=== PATIENT | female | born 1960 | race Caucasian/White ===

== ENCOUNTER 2017-12-11 14:55 | Outpatient (REF) | payer MEDICAID, SELFPAY ==
[2017-12-11 22:34] LABS: ALT 32 U/L (12-78); AST 26 U/L (15-37); Albumin 3.8 g/dL (3.4-5.0); Alkaline Phosphatase 64 U/L (46-116); Amylase 96 U/L (25-115); Anion Gap 8.2 mmol/L (3-11); BUN 14 mg/dL (7-18); Bilirubin, Total 1.3 mg/dL (0.2-1.0); CO2 30.8 mmol/L (21.0-32.0); CREATININE 0.74 mg/dL (0.55-1.02); Calcium 9.1 mg/dL (8.5-10.1); Chloride 101 mmol/L (98-107); Glucose 84 mg/dL (70-100); Lipase 209 U/L (73-393); Potassium 3.6 mmol/L (3.5-5.1); Sodium 140 mmol/L (136-145); TSH (W/Ref FT4) 0.97 uIU/mL (0.358-3.74); Total Protein 7.3 g/dL (6.4-8.2)
== END 2017-12-11 15:15 ==
LOC: NCHCN 14:55
PROVIDERS: Visit Provider Nurse Practitioner
DX: R10.11 Right upper quadrant pain (principal); E03.9 Hypothyroidism, unspecified
CPT/HCPCS: 80053; 83690; 82150; 84443

== ENCOUNTER 2017-12-16 01:04 | Outpatient (CLI) | payer MEDICAID, SELFPAY ==
--- NOTE | 2017-12-16 08:24 | DI.US_ITS ---
SYMPTOM/DIAGNOSIS: RUQ PAIN, R10.11 ABDOMEN ULTRASOUND: Routine examination. Comparison is made with exam of 05/20/15. Comparison CT scan is 08/22/16. The aorta is unremarkable. The IVC appears mildly dilated superiorly. The liver is normal in size. No hepatic mass is seen. The gallbladder, common duct, pancreas and spleen are unremarkable as are the kidneys. There does appear to be a small pericardial effusion present. IMPRESSION: 1. Negative abdominal ultrasound. 2. Findings suggestive of a small pericardial effusion. Echocardiography should be considered for further evaluation.
--- NOTE | 2017-12-16 09:15 | DI.MAMMO_ITS ---
SYMPTOM/DIAGNOSIS: SCREENING, Z12.31 MAMMOGRAMS: Mammograms were interpreted according to the usual protocol including computer analysis with CAD system, tomosynthesis and C view imaging. Comparison with prior examinations. Breast C. No masses or microcalcifications are seen. There is nothing to suggest malignancy. IMPRESSION: Negative mammogram. Routine screening is recommended. Category I. MQSA ASSESSMENT OF FINDINGS: Negative. Category 1. Patient will receive a letter notifying them of these results. Bi-RADS category C. The breasts are heterogeneously dense, which may obscure small masses.
== END 2017-12-16 01:24 ==
PROVIDERS: Visit Provider Nurse Practitioner
DX: R10.11 Right upper quadrant pain (principal); I31.3 Pericardial effusion (noninflammatory); Z12.31 Encounter for screening mammogram for malignant neoplasm of breast
CPT/HCPCS: 77063; 77067; 76700

== ENCOUNTER 2017-12-20 12:15 | Outpatient (REF) | payer MEDICAID, SELFPAY ==
[2017-12-20 21:24] LABS: Absolute Basophil Count 0.06 k/cumm (0.0-0.2); Absolute Eosinophil Count 0.05 k/cumm (0.0-0.7); Absolute Lymphocyte Count 1.67 k/cumm (1.2-3.4); Absolute Neutrophil Count 1.96 k/cumm (1.2-6.7); Basophils % 1.4; Eosinophils % 1.2; HCT 38.9 % (36.0-46.0); HGB 13.3 g/dL (12.0-15.5); Lymphocytes % 40.3; Mean Corp. HGB Concentration 34.2 g/dL (32.0-36.0); Mean Corpuscular Hemoglobin 30.4 pg (27.0-33.0); Mean Platelet Volume 10.9 fL (8.0-11.0); Monocytes % 9.7; Neutrophils % 47.4; Platelet Count 228 x1000/uL (130-400); RBC 4.37 m/cumm (4.00-5.20); RBC Distribution Width 12.9 % (11.7-14.6); White Blood Cell Count 4.14 k/cumm (4.4-10.8)
== END 2017-12-20 12:35 ==
LOC: NCHCN 12:15
PROVIDERS: Visit Provider Internal Medicine
DX: R05 Cough (principal)
CPT/HCPCS: 85025

== ENCOUNTER 2018-01-17 00:20 | Outpatient (CLI) | payer MEDICAID, SELFPAY ==
--- NOTE | 2018-01-17 12:25 | MERGE_ITS ---
*[facility]* *[facility]* [address] [place] [address] Date of study: 01/17/2018 Transthoracic Echocardiography M-mode, complete 2D, complete spectral Doppler, and color Doppler *STUDY CONCLUSIONS* Summary: 1. Left ventricle: The cavity size was normal. Wall thickness was normal. Systolic function was normal. The estimated ejection fraction was 55-60%. Wall motion was normal; there were no regional wall motion abnormalities. 2. Right ventricle: The cavity size was normal. Systolic function was normal. 3. Tricuspid valve: There was mild-moderate regurgitation. 4. Inferior vena cava: The vessel was patent and normal in size. The respirophasic diameter changes were in the normal range (greater than or equal to 50%), consistent with normal central venous pressure. 5. Pericardium, extracardiac: A small, free-flowing pericardial effusion was identified along the right ventricular free wall and along the right atrial free wall. There was no evidence of hemodynamic compromise. *PATIENT PRESENTATION* Height: 175.3cm ((69in) ) S/D Pressure: 90 / 61 Weight: 53.5kg ((117.8lb) ) BSA: 1.6m^2 Test start time: 10:30 AM. Test stop time: 12:15 PM. PERFORMING Unknown PERFORMING [facility] [employer] RT Hunter ([place])([place]), [facility] ORDERING Erna Dumont REFERRING Erna Dumont *PROCEDURE DATA* Procedure information: The patient was identified by two identifiers. This study was interpreted by [facility]. Pertinent images and digital data are archived for permanent storage and are available for subsequent review. No prior study was available for comparison. Study status: Routine. Transthoracic echocardiography. M-mode, complete 2D, complete spectral Doppler, and color Doppler. A Transthoracic Echocardiogram was performed. Scanning was performed from the parasternal, apical, subcostal, and suprasternal notch acoustic windows. Images were obtained using an [id number] cardiac ultrasound machine. Image quality was adequate. Study completion: The patient tolerated the procedure well. There were no complications. History: PMH: Possible pericardial effusion noted on abd. US. asymptomatic. *CARDIAC ANATOMY* Left ventricle: The cavity size was normal. Wall thickness was normal. Systolic function was normal. The estimated ejection fraction was 55-60%. Wall motion was normal; there were no regional wall motion abnormalities. Aortic valve: Trileaflet; mildly thickened, mildly calcified leaflets. Mobility was not restricted. Doppler: Transvalvular velocity was within the normal range. There was no stenosis. There was no significant regurgitation. VTI ratio of LVOT to aortic valve: 0.84. Valve area (VTI): 2.3cm^2. Indexed valve area (VTI): 1.4cm^2/m^2. Peak velocity ratio of LVOT to aortic valve: 0.88. Valve area (Vmax): 2.4cm^2. Indexed valve area (Vmax): 1.5cm^2/m^2. Mean velocity ratio of LVOT to aortic valve: 0.72. Valve area (Vmean): 2cm^2. Indexed valve area (Vmean): 1.2cm^2/m^2. Mean gradient (S): 3.2mm Hg. Peak gradient (S): 5.9mm Hg. Aorta: Aortic root: The aortic root was normal in size. Ascending aorta: The ascending aorta was normal in size. Mitral valve: Mildly thickened leaflets. Mobility was not restricted. Doppler: Transvalvular velocity was within the normal range. There was no evidence for stenosis. There was trivial regurgitation. Valve area by pressure half-time: 3.2cm^2. Indexed valve area by pressure half-time: 2cm^2/m^2. Left atrium: The atrium was normal in size. Right ventricle: The cavity size was normal. Systolic function was normal. Pulmonic valve: The pulmonary valve appears to be grossly normal. Doppler: Transvalvular velocity was within the normal range. There was no evidence for stenosis. There was no significant regurgitation. Tricuspid valve: Structurally normal valve. Doppler: Transvalvular velocity was within the normal range. There was no evidence for stenosis. There was mild-moderate regurgitation. Pulmonary artery: The main pulmonary artery was normal-sized. Pulmonary systolic pressure was within the normal range, in the range of 25mm Hg to 30mm Hg. Right atrium: The atrium was normal in size. Pericardium: A small, free-flowing pericardial effusion was identified along the right ventricular free wall and along the right atrial free wall. There was no evidence of hemodynamic compromise. Systemic veins: Inferior vena cava: Well visualized. The vessel was patent and normal in size. The respirophasic diameter changes were in the normal range (greater than or equal to 50%), consistent with normal central venous pressure. Baseline ECG: Sinus bradycardia. Measurements Left ventricle Value Reference LV ID, ED, PLAX 4.0 cm 3.5 - 6.0 LV ID, ES, PLAX 3.0 cm 2.1 - 4.0 LV PW thickness, ED, PLAX 1.0 cm LV end-diastolic volume, 1-p A2C 84 ml LV ejection fraction, 1-p A2C 55 % LV end-diastolic volume, 1-p A4C 72 ml LV ejection fraction, 1-p A4C 53 % LV e', lateral 0.12 m/sec LV E/e', lateral 5 LV e', medial 0.1 m/sec LV E/e', medial 6 LV e', average 0.11 m/sec LV E/e', average 6 Ventricular septum Value Reference IVS thickness, ED, PLAX 0.7 cm LVOT Value Reference LVOT ID, A-P 1.9 cm LVOT area 2.7 cm^2 LVOT peak velocity, S 1.07 m/sec LVOT mean velocity, S 0.62 m/sec LVOT VTI, S 24.5 cm LVOT peak gradient, S 4.6 mm Hg LVOT mean gradient, S 1.9 mm Hg Stroke volume (SV), LVOT DP 66 ml Stroke index (SV/bsa), LVOT DP 41 ml/m^2 Aortic valve Value Reference Aortic valve peak velocity, S 1.2 m/sec Aortic valve mean velocity, S 0.86 m/sec Aortic valve VTI, S 29.0 cm Aortic mean gradient, S 3.2 mm Hg Aortic peak gradient, S 5.9 mm Hg VTI ratio, LVOT/AV 0.84 Aortic valve area, VTI 2.3 cm^2 Velocity ratio, peak, LVOT/AV 0.88 Aortic valve area, peak velocity 2.4 cm^2 Velocity ratio, mean, LVOT/AV 0.72 Aortic valve area, mean velocity 2 cm^2 Aortic valve area/bsa, mean velocity 1.2 cm^2/m^2 Aorta Value Reference Aortic root ID, ED 3.4 cm Ascending aorta ID, A-P, S 3.1 cm Left atrium Value Reference LA ID, A-P, ES 2.6 cm LA ID/bsa, A-P 1.7 cm/m^2 <=2.2 LA area, ES, A4C 14.6 cm^2 8.8 - 23.4 LA area, ES, A2C 15 cm^2 LA volume/bsa, ES, 1-p A4C 21 ml/m^2 LA volume, ES, 1-p A2C 35 ml LA volume/bsa, ES, 1-p A2C 22 ml/m^2 LA/aortic root ratio 0.78 Mitral valve Value Reference Mitral E-wave peak velocity 0.62 m/sec Mitral A-wave peak velocity 0.47 m/sec Mitral deceleration time (H) 238 ms 150 - 230 Mitral pressure half-time 69 ms Mitral E/A ratio, peak 1.31 Mitral valve area, PHT, DP 3.2 cm^2 Pulmonary veins Value Reference Pulmonary vein peak velocity, S 0.44 m/sec Pulmonary vein peak velocity, D 0.52 m/sec Pulmonary vein velocity ratio, peak, 0.84 S/D Pulmonary vein A-wave reversal peak 0.34 m/sec velocity Tricuspid valve Value Reference Tricuspid regurg peak velocity 2.4 m/sec Tricuspid peak RV-RA gradient 23 mm Hg Legend: (L) and (H) faustino values outside specified reference range. I have personally reviewed the images and have reviewed and edited the reported findings. Electronically signed by Galilea Beckwith 01/17/2018 15:41
== END 2018-01-17 00:40 ==
PROVIDERS: Visit Provider Nurse Practitioner
DX: I36.1 Nonrheumatic tricuspid (valve) insufficiency (principal); I31.3 Pericardial effusion (noninflammatory)
CPT/HCPCS: 93306

== ENCOUNTER 2018-01-20 18:06 | Outpatient (REF) | payer MEDICAID, SELFPAY ==
--- NOTE | 2018-01-20 14:22 | SKI_PTH ---
PATIENT: Radha Swan LOC: [facility] U#:[id number] AGE/SX: 57/F ROOM: RE01/20/[address]: Erna Dumont : 1960 BED: DIS: 01/20/2018 SPEC #: [id number] RECD: 01/21/18 11:47 STATUS: ROBSON REDaniel #: [id number] JORGE: 01/20/18 14:[address]: Erna Dumont DEPT: Surgical Specimen RECD BY: Cynthia Jean Baptiste ENTERED: 01/21/18 11:47 SP TYPE: KIRK MEJIA DR: Smita Yee Tissues: 1 - SKIN BIOPSY(SHAVE/PUNCH) 2 - SKIN BIOPSY(SHAVE/PUNCH) Procedures: IMMUNOPEROXIDASE STAIN SKIN LEVEL 4 Comments: [id number]
== END 2018-01-20 18:26 ==
LOC: NCHCN 18:06
PROVIDERS: Visit Provider Nurse Practitioner
DX: L28.0 Lichen simplex chronicus (principal)
CPT/HCPCS: 88305; 88361

== ENCOUNTER 2018-03-28 15:30 | Emergency (ER) | payer MEDICAID, SELFPAY ==
[2018-03-28 15:42] VITALS: BP 148/61; PULSE 62; RESP 18; TEMP 36.6; O2SAT 100
--- NOTE | 2018-03-28 16:18 | ED.GENADUL_ITS ---
Discharge Plan Disposition Patient Disposition: HOME Condition: Stable Discharge Details Chief Complaint: Orthopedic Clinical Impression: Concussion Primary Care Provider: Erna Dumont ED Provider: Aashish Garces Home Meds and New Rx's Prescriptions: No Action levothyroxine 75 MCG tablet 75 mcg PO DAILY RF: 0 Discharge Instructions Instructions: Concussion (ED) Additional Instructions: you can take 1000mg tylenol and 600mg ibuprofen every 6 hours for pain as needed Follow up with your primary care provider if symptoms continue in 1-2 weeks If you have persistent vomit or severe worsening of pain return to the emergency department Medical Decision Making 57 yo female comes in with cc of mild headache and right hip pain as well as right upper back pain. She states it started after she fell earlier getting out of her car because she slipped and landed on her right side. Did not lose consciousness, hasn't had vomit and has no weakness. she is ambulating without deficits and has full rom of the hips, doubt hip fx, has pian over lateral right hip that is likely a contusion, do not feel xray indicated. No palpable d eformity of the right upper back and has clera lungs and full rom of the right shoulder and arm and intact sensation. I offered xray to eval for rib fx but she declined. She meets all criteria per haitian head ct rules to not image head. She will f/u with her pcp and return precautions given Differential Diagnosis strain, contusion, concussion HPI General Mode of arrival: ambulatory . Date/Time Provider Initiated Documentation: 03/28/18 15:56 . Limitations to Documentation: no limitations . Information obtained by: patient . History of Present Illness 57 year old F presents to the emergency department with the chief complaint of right hip pain, described as mild, with intensity rated at 4. Patient reports no radiation. Patient started experiencing this hour(s) (3) and it has been constant. No relieving factors improve symptom(s), No exacerbating factors reported . Patient notes other (right sided thoracic pain, headache). Patient did receive the following treatments prior to arrival, none Related Data Home Medications Medication Instructions Recorded Confirmed levothyroxine 75 mcg PO DAILY 07/20/13 03/28/18 Allergies Allergy/AdvReac Type Severity Reaction Status Date / Time Penicillins Allergy Severe Skin Unverified 07/26/15 09:08 Rash, inside & out sulfamethoxazole Allergy Intermediate facial rash Unverified 07/26/15 09:08 [From Bactrim] tetracycline Allergy Intermediate facial rash Unverified 07/26/15 09:08 trimethoprim [From Bactrim] Allergy Intermediate facial rash Unverified 07/26/15 09:08 General Stated Complaint: Orthopedic GAEL: 3 Review of Systems Review of Systems All systems reviewed & are unremarkable except as noted in HPI and below Constitutional Denies chills, Denies fever(s) and Denies weakness Eyes Denies loss of vision ENT Denies change in voice Cardiovascular Denies dyspnea Respiratory Denies cough and Denies dyspnea Gastrointestinal Denies abdominal pain, Denies nausea and Denies vomiting Genitourinary Denies dysuria Musculoskeletal Denies joint swelling Integumentary/Breasts Denies rash Neurologic Denies loss of vision and Denies weakness Psychiatric Denies depression Endocrine Denies cold intolerance and Denies heat intolerance Allergic/Immunologic Denies urticaria PFSH Surgical History Appendectomy Tonsillectomy Family History Mother Stomach cancer Grandfather Stomach cancer Grandfather Esophageal cancer Other Alcohol abuse Social History Smoking and Tabacco status: Former Tobacco Use Exam Const General: no acute distress Orientation: alert HENMT Head: normal to inspection Ears: external ears normal General nose exam: external nose normal Mouth: moist mucous membranes Eyes General: appearance normal, both eyes and all related structures Neck Neck: normal visual inspection Resp Effort & Inspection: normal respiratory effort and able to speak in complete sentences Cardio Rate: regular rate Skin General skin exam: no rashes or lesions noted Neuro General: alert and oriented x3 Extrem General: normal to inspection Psych Mental Status: mental status grossly normal Course Vital Signs Temperature 36.6 C 03/28/18 15:42 Pulse 62 03/28/18 15:42 Respiratory Rate 18 03/28/18 15:42 Blood Pressure 148/61 H 03/28/18 15:42 Pulse Oximetry 100 03/28/18 15:42 Temperature 36.6 C 03/28/18 15:42 Temperature Source Temporal Artery Scan 03/28/18 15:42 Pulse 62 03/28/18 15:42 Respiratory Rate 18 03/28/18 15:42 Respiratory Effort Non-Labored 03/28/18 15:46 Blood Pressure 148/61 H 03/28/18 15:42 Blood Pressure Position Sitting 03/28/18 15:42 Pulse Oximetry 100 03/28/18 15:42 Oxygen Delivery Method Room Air 03/28/18 15:42 Oxygen Flow Rate 0 03/28/18 15:42 Pain Level 3 03/28/18 15:42
== END 2018-03-28 16:30 | disposition home or self-care (01) ==
PROVIDERS: Emergency Provider Emergency Medicine; PCP Nurse Practitioner
DX: S06.0X0A Concussion without loss of consciousness, initial encounter (principal); M25.551 Pain in right hip; M54.6 Pain in thoracic spine; W00.0XXA Fall on same level due to ice and snow, initial encounter
CPT/HCPCS: 99283

== ENCOUNTER 2018-05-21 11:58 | Outpatient (REF) | payer MEDICAID, SELFPAY ==
--- NOTE | 2018-05-21 12:30 | PAPFT_PTH ---
PATIENT: Radha Swan [id number] AGE/SX: 57/F ROOM: RE05/21/[address]: Erna Dumont : 1960 BED: DIS: 05/21/2018 SPEC #: [id number] RECD: 05/22/18 12:54 STATUS: ROBSON REDaniel #: [id number] JORGE: 05/21/18 12:[address]: Erna Dumont DEPT: [facility] Cytology RECD BY: Cynthia Jean Baptiste Tissues: 1 - CX/ENDOCX FOR PAP SMEARS Procedures: PAP THIN PREP/UVM Screening HPV DNA PROBE Comments: [id number]
[2018-05-21 21:50] LABS: Absolute Basophil Count 0.09 k/cumm (0.0-0.2); Absolute Eosinophil Count 0.06 k/cumm (0.0-0.7); Absolute Lymphocyte Count 1.55 k/cumm (1.2-3.4); Absolute Monocyte Count 0.43 k/cumm (0.11-0.7); Absolute Neutrophil Count 1.98 k/cumm (1.2-6.7); Basophils % 2.2; Eosinophils % 1.5; HCT 40.4 % (36.0-46.0); HGB 13.5 g/dL (12.0-15.5); Lymphocytes % 37.7; Mean Corp. HGB Concentration 33.4 g/dL (32.0-36.0); Mean Corpuscular Hemoglobin 29.7 pg (27.0-33.0); Monocytes % 10.5; Neutrophils % 48.1; Platelet Count 233 x1000/uL (130-400); RBC 4.54 m/cumm (4.00-5.20); RBC Distribution Width 13.2 % (11.7-14.6); White Blood Cell Count 4.11 k/cumm (4.4-10.8)
== END 2018-05-21 12:18 ==
LOC: NCHCN 11:58
PROVIDERS: PCP Nurse Practitioner; Visit Provider Nurse Practitioner
DX: E03.9 Hypothyroidism, unspecified (principal); D72.819 Decreased white blood cell count, unspecified; Z12.4 Encounter for screening for malignant neoplasm of cervix; Z11.51 Encounter for screening for human papillomavirus (HPV)
CPT/HCPCS: 88142; 84443; 85025; 87624

== ENCOUNTER 2018-05-26 14:15 | Outpatient (CLI) | payer MEDICAID, SELFPAY ==
[2018-05-26 16:04] LABS: Vitamin B12 426 pg/mL (193-986)
[2018-05-27 14:41] LABS: HBs Antibody, Qual Negative; HBs Antibody, Quant <3.1 mIU/mL; Hepatitis B Core Antibody Negative (NEGAT); Hepatitis B surface Ag Negative (NEGAT); Hepatitis C Ab w Rflx HCV PCR Negative (NEGAT)
[2018-05-27 16:04] LABS: Copper, Serum 1.12 mcg/mL (0.75-1.45)
== END 2018-05-26 14:35 ==
PROVIDERS: PCP Nurse Practitioner; Visit Provider Nurse Practitioner
DX: D72.819 Decreased white blood cell count, unspecified (principal); Z11.59 Encounter for screening for other viral diseases
CPT/HCPCS: 36415; 86704; 86706; 86803; 87340; 82525; 82607; 82746

== ENCOUNTER 2018-12-17 12:48 | Outpatient (REF) | payer MEDICAID, SELFPAY ==
[2018-12-17 21:43] LABS: HCT 40.5 % (36.0-46.0); HGB 13.5 g/dL (12.0-15.5); Mean Corp. HGB Concentration 33.3 g/dL (32.0-36.0); Mean Corpuscular Hemoglobin 29.9 pg (27.0-33.0); Mean Corpuscular Volume 89.8 fL (80-95); Mean Platelet Volume 10.8 fL (8.0-11.0); Platelet Count 242 x1000/uL (130-400); RBC 4.51 m/cumm (4.00-5.20); RBC Distribution Width 13.1 % (11.7-14.6); White Blood Cell Count 4.38 k/cumm (4.4-10.8)
[2018-12-17 23:25] LABS: ALT 34 U/L (14-59); AST 25 U/L (15-37); Calculated LDL 119 mg/dL; Cholesterol 240 mg/dL (50-200); HDL Cholesterol 112 mg/dL (40-60); TSH (W/Ref FT4) 1.69 uIU/mL (0.36-3.74); Triglyceride 48 mg/dL (30-150)
== END 2018-12-17 13:08 ==
LOC: NCHCN 12:48
PROVIDERS: PCP Nurse Practitioner; Visit Provider Nurse Practitioner Family
DX: E03.9 Hypothyroidism, unspecified (principal); D72.819 Decreased white blood cell count, unspecified; Z13.220 Encounter for screening for lipoid disorders
CPT/HCPCS: 80061; 85027; 84443; 84450; 84460

== ENCOUNTER 2019-01-13 00:41 | Outpatient (CLI) | payer MEDICAID, SELFPAY ==
--- NOTE | 2019-01-13 13:08 | DI.MAMMO_ITS ---
EXAM: MAMMO SCREENING CLINICAL HISTORY: SCREENING, Z12.31 TECHNIQUE: Mammograms were interpreted according to the usual protocol including computer analysis w [employer] CAD system, tomosynthesis and C-view imaging. COMPARISON: [id number] FINDINGS: The breasts are composed of heterogeneously dense fibroglandular tissue, breast density category C. No suspicious masses or suspicious microcalcifications are seen. There has been no significant change . IMPRESSION: Category 1, negative mammogram. Yearly screening mammography is recommended.
== END 2019-01-13 01:01 ==
PROVIDERS: PCP Nurse Practitioner Family; Visit Provider Nurse Practitioner Family
DX: Z12.31 Encounter for screening mammogram for malignant neoplasm of breast (principal)
CPT/HCPCS: 77063; 77067

== ENCOUNTER 2019-02-16 00:40 | Outpatient (CLI) | payer MEDICAID, SELFPAY ==
--- NOTE | 2019-02-16 06:58 | DI.US_ITS ---
EXAM: US ABDOMEN CLINICAL HISTORY: RUQ ABD PAIN, R10.11, NAUSA, R11.0 TECHNIQUE: Ultrasound abdomen performed using standard protocol. COMPARISON: Cardiac from 01/17/2018 FINDINGS: LIVER: Normal. GALLBLADDER: No evidence of cholelithiasis. No evidence of wall thickening. No pericholecystic fluid identified. KIDNEYS: Kidneys are symmetric in size. No evidence of renal calculi. No evidence of hydronephrosis. No renal mass or cyst identified. BILIARY SYSTEM: Common bile duct measures 2.6 mm. No intrahepatic biliary ductal dilation. PINO'S SIGN: Negative. PANCREAS: Normal where visualized. SPLEEN: Not enlarged. ABDOMINAL AORTA AND IVC: Visualized portions normal caliber. ASCITES: None seen. Heart: Findings of a small pericardial effusion. Portal vein: Hepatopetal flow. IMPRESSION: 1. Unremarkable abdominal ultrasound. 2. Small pericardial effusion.
== END 2019-02-16 01:00 ==
PROVIDERS: PCP Nurse Practitioner Family; Visit Provider Internal Medicine
DX: R10.11 Right upper quadrant pain (principal); R11.0 Nausea; I31.3 Pericardial effusion (noninflammatory)
CPT/HCPCS: 76700

== ENCOUNTER 2019-02-17 11:04 | Outpatient (REF) | payer MEDICAID, SELFPAY ==
[2019-02-20 14:39] LABS: ANA Interpretation Positive (Negative); ANA Titer Pattern 1:320 Homogeneous
[2019-03-03 15:36] LABS: dsDNA Ab, IgG <12.3 IU/mL (<30.0)
== END 2019-02-17 11:24 ==
LOC: NCHCN 11:04
PROVIDERS: PCP Nurse Practitioner Family; Visit Provider Internal Medicine
DX: I31.3 Pericardial effusion (noninflammatory) (principal); R76.0 Raised antibody titer
CPT/HCPCS: 86038; 86225

== ENCOUNTER 2019-02-19 11:58 | Outpatient (REF) | payer MEDICAID, SELFPAY ==
[2019-02-20 12:34] LABS: Campylobacter PCR Negative (Negative); Salmonella PCR Negative (Negative); Shiga Toxin PCR Negative (Negative); Shigella/Enteroinvasive Ecoli Negative (Negative)
== END 2019-02-19 12:18 ==
LOC: NCHCN 11:58
PROVIDERS: PCP Nurse Practitioner Family; Visit Provider Internal Medicine
DX: R10.11 Right upper quadrant pain (principal); K52.9 Noninfective gastroenteritis and colitis, unspecified
CPT/HCPCS: 87329; 87505; 82272; 83630

== ENCOUNTER 2019-03-27 13:29 | Outpatient (REF) | payer MEDICAID, SELFPAY ==
[2019-03-27 20:00] LABS: Bilirubin Negative (Negative); Blood Large (Negative); Clarity Clear (Clear); Glucose Negative (Negative); Ketones Negative (Negative); Leukocyte Esterase Moderate (Negative); Nitrite Negative (Negative); Specific Gravity <= 1.005 (1.005-1.025); Urobilinogen 0.2 EU/dL (Up TO 0.2)
[2019-03-27 20:18] LABS: Bacteria Negative HPF (Negative); C & S Indicated? C&S Done As Ordered; Crystals Negative HPF (Negative); Epithelial Cells Negative HPF (Negative); Mucus Negative (Negative); WBC >50 HPF (0-5)
== END 2019-03-27 13:49 ==
LOC: NCHCN 13:29
PROVIDERS: PCP Nurse Practitioner Family; Visit Provider Nurse Practitioner Family
DX: R30.0 Dysuria (principal)
CPT/HCPCS: 81003; 81015; 87086

== ENCOUNTER 2019-11-10 10:29 | Outpatient (REF) | payer MEDICAID, SELFPAY ==
[2019-11-10 22:02] LABS: TSH 1.51 uIU/mL (0.36-3.74)
== END 2019-11-10 10:49 ==
LOC: NCHCN 10:29
PROVIDERS: PCP Nurse Practitioner Family; Visit Provider Family Medicine
DX: E03.9 Hypothyroidism, unspecified (principal)
CPT/HCPCS: 84439; 84443

== ENCOUNTER 2020-09-20 02:17 | Outpatient (CLI) | payer MEDICAID, SELFPAY ==
--- NOTE | 2020-09-20 | DI.RAD_ITS ---
Exam(s) XR CHEST 2V PA LATERAL EXAM: XR CHEST 2V PA LATERAL CLINICAL HISTORY: DYSPHAGIA,R13.10,SORE THROAT,J02.9 TECHNIQUE: COMPARISON: No exams were available for comparison FINDINGS: The heart is not enlarged. Lungs appear mildly hyperinflated which may reflect COPD. No focal pulmo nary infiltrates seen. No pleural effusion. Mediastinal contours appear within normal limits. IMPRESSION: No evidence of acute process. RADIATION DOSE DELIVERED: Total DLP
== END 2020-09-20 02:37 ==
PROVIDERS: PCP Nurse Practitioner Family; Visit Provider Nurse Practitioner Family
DX: J02.9 Acute pharyngitis, unspecified (principal)
CPT/HCPCS: 71046

== ENCOUNTER 2020-10-10 00:39 | Outpatient (CLI) | payer MEDICAID, SELFPAY ==
--- NOTE | 2020-10-10 | DI.US_ITS ---
Exam(s) US THYROID EXAM: US THYROID CLINICAL HISTORY: NECK PAIN, M54.2, HYPOTHYROIDISM, E03.9. TECHNIQUE: Ultrasound thyroid performed using standard protocol. COMPARISON: No exams were available for comparison FINDINGS: Both thyroid lobes exhibit normal size as does the isthmus. RIGHT THYROID LOBE: Measures 1.0 cm AP x 1.0 cm wide x 4.5 cm craniocaudal Right thyroid lobe exhibits normal echotexture and no nodules. ISTHMUS: Normal thickness. There are no nodules in the isthmus. LEFT THYROID LOBE: Measures 0.8 cm AP x 0.9 wide x 0.6 cm craniocaudal Left thyroid lobe also exhibits normal echotexture and no nodules. No significant adenopathy evident on either side IMPRESSION: Normal appearing thyroid gland. Both thyroid lobes exhibit normal size and echo architecture. There are no thyroid nodules. No significant lymphadenopathy. DATA REPOSITORY:
== END 2020-10-10 00:59 ==
PROVIDERS: PCP Nurse Practitioner Family; Visit Provider Nurse Practitioner Family
DX: E03.9 Hypothyroidism, unspecified (principal); M54.2 Cervicalgia
CPT/HCPCS: 76536

== ENCOUNTER 2020-11-25 03:37 | Outpatient (CLI) | payer MEDICAID, SELFPAY ==
--- NOTE | 2020-11-25 | DI.CT_ITS ---
Exam(s) CT ABDOMEN PELVIS W EXAM: CT ABDOMEN PELVIS W INDICATION: ABD PAIN,R10.9,NAUSEA,R11.0,DYSPHAGIA,R13.10. COMPARISON: No exams were available for comparison TECHNIQUE: FINDINGS: CT examination of the abdomen and pelvis was performed with a bolus infusion of 100 cc of Omnipaque 3 50 and ingestion of dilute barium.. Images obtained through the lung bases are unremarkable. There is question of wall thickening of the gastric antrum, please correlate regarding the possibilit y gastritis. The liver is unremarkable in appearance except for a small low-attenuation right hepatic lobe lesion which may represent a hemangioma, unchanged from prior examination of August 2016.. Gallbladder and bile ducts are CT normal. Pancreas appears normal. Spleen is unremarkable in appearance. Adrenals appear normal. The kidneys are unremarkable with no evidence of hydronephrosis, nephrolithiasis, or renal mass.. Ur inary bladder unremarkable. Abdominal aorta is of normal diameter and no major vascular abnormality is seen. No abdominal wall hernia. No abdominal or pelvic adenopathy. [employer] structures appear intact. Appendix is not specifically visualized but there is no evidence appendicitis.. No evidence of diver ticulitis or bowel obstruction. IMPRESSION: Question wall thickening of the gastric antrum, please correlate regarding the possibility of gastrit is. No other significant findings. RADIATION DOSE DELIVERED: 533.1mGy.cm Total DLP 533.1mGy.cm Total DLP 11.02mGy CTDIvol RADIATION OPTIMIZATION: All CT scans at this facility use at least one of these dose optimization te chniques: automated exposure control; mA and/or kV adjustment per patient size (includes targeted exa ms where dose is matched to clinical indication); or iterative reconstruction.
--- NOTE | 2020-11-25 14:00 | DI.MAMMO_ITS ---
Exam(s) MAMMO SCREENING EXAM: MAMMO SCREENING CLINICAL HISTORY: SCREENING,Z12.39 TECHNIQUE: Mammograms were interpreted according to the usual protocol including computer analysis w [employer] CAD system, tomosynthesis and C-view imaging. COMPARISON: FINDINGS: The breasts are heterogeneously dense with symmetrical distribution of fibroglandular tissue. No dom inant mass or clumped microcalcification is identified in either breast. The current examination is compared with previous examinations including December 2018 and there has been no gross interval lawson ge in appearance in comparison with the prior studies. IMPRESSION: No specific evidence of malignancy at this time. Routine screening examinations are suggested at yea rly intervals in this age group according to the ACS ACR guidelines. BI-RADS Category 1 - Negative Breast Density - Category C - Heterogeneously dense
[2020-11-25] MEDS: Breeza Beverage 473 ML BTL PO ×2 (14:06→14:07)
[2020-11-25] MEDS: Omnipaque 350 MG/ML 50 ML BTL PO (14:06)
[2020-11-25 14:14] LABS: CREATININE 0.7 mg/dL (0.55-1.02)
== END 2020-11-25 03:57 ==
PROVIDERS: PCP Nurse Practitioner Family; Visit Provider Nurse Practitioner Family
DX: R13.10 Dysphagia, unspecified (principal); R10.9 Unspecified abdominal pain; R11.0 Nausea; Z12.31 Encounter for screening mammogram for malignant neoplasm of breast; R92.8 Other abnormal and inconclusive findings on diagnostic imaging of breast
CPT/HCPCS: 77063; 77067; 74177; 82565; Q9967

== ENCOUNTER 2021-04-26 17:10 | Outpatient (REF) | payer MEDICAID, SELFPAY ==
[2021-04-26 21:32] LABS: TSH (W/Ref FT4) 0.93 uIU/mL (0.36-3.74)
== END 2021-04-26 17:11 | disposition home or self-care (01) ==
LOC: NCHCN 17:10
PROVIDERS: PCP Nurse Practitioner Family; Visit Provider Nurse Practitioner Family
DX: E03.9 Hypothyroidism, unspecified (principal)
CPT/HCPCS: 84443

== ENCOUNTER → 2021-11-28 01:56 | Outpatient (CLI) | payer MEDICAID, SELFPAY ==
--- NOTE | 2021-11-28 15:00 | DI.MAMMO_ITS ---
Exam(s) MAMMO SCREENING EXAM: MAMMO SCREENING CLINICAL HISTORY: screening TECHNIQUE: Bilateral full field digital CC and MLO mammographic images were obtained with 3D tomosyn thesis and utilizing computer aided detection (CAD). COMPARISON: Available for comparison. FINDINGS: Masses/Architectural Distortion: None seen. Microcalcifications: No suspicious pleomorphic-type are seen. Skin Thickening/Nipple Retraction: None. IMPRESSION: 1. No significant interval change with no specific features of malignancy noted. 2. Unless there is more urgent need, screening mammography is recommended, as per [employer] guidelines. BI-RADS Category 1 - Negative Breast Density - Category C - Heterogeneously dense Breast density category C or D implies that the patient has dense breast tissue. Dense breast tissue is very common and is not abnormal but dense breast tissue can make it harder to find cancer on a ma mmogram. Also, dense breast tissue may increase their breast cancer risk. This information about the result of the mammogram report was provided to the patient to raise their awareness. Use this report when you speak with the patient about their risks for breast cancer, which includes their family hist ory. At that time, you may recommend for more screening tests (Ultrasound or MRI) as they might be us eful based on their risk. A negative radiographic report should not delay biopsy if a dominant or clinically suspicious mass is present. Up to ten percent of cancers are not identified on mammography. A negative report may reinforce clinical impression. Adenosis and dense breasts may obscure an underlying neoplasm. False positive reports average 6 to 10%. Patient will receive a letter notifying them of these results.
== END ==
PROVIDERS: PCP Nurse Practitioner Family; Visit Provider Nurse Practitioner Women's Health
DX: Z12.31 Encounter for screening mammogram for malignant neoplasm of breast (principal); R92.8 Other abnormal and inconclusive findings on diagnostic imaging of breast
CPT/HCPCS: 77063; 77067

== ENCOUNTER 2022-01-30 01:23 | Outpatient (CLI) | payer MEDICAID, SELFPAY ==
--- NOTE | 2022-01-30 13:53 | DI.US_ITS ---
APPROVED REPORT EXAM: Comprehensive 2D, Doppler, and color-flow Echocardiogram Patient Location: Out-Patient Screening Technician: Elvira Mendiola RDCS (AE) Indications: Pericardial effusion Other Information Study Quality: Adequate Conclusion Normal left ventricular wall thickness and chamber size. Estimated ejection fraction is 60%. Wall m otion is normal Normal right ventricular size and systolic function Both atria are normal in size Aortic valve is trileaflet and mildly sclerotic without stenosis or regurgitation Trivial anterior pericardial effusion Normal estimated right ventricular systolic pressure 19 mmHg Wall motion Left Ventricle The left ventricle is normal size. The left ventricular systolic function is normal. The left ventric ular ejection fraction is within the normal range. There is normal left ventricular wall thickness. T here is normal LV segmental wall motion. There is no ventricular septal defect visualized. LVEF is 60 %. Right Ventricle The right ventricle is normal size. The right ventricular systolic function is normal. The RVSP is 19 .0 mmHg. Atria The left atrium size is normal. The right atrium size is normal. There is no Doppler evidence for an atrial septal defect. Aortic Valve The Aortic valve is mildly sclerotic. Aortic valve is trileaflet. There is no aortic valvular stenos is. No aortic regurgitation is present. Mitral Valve The mitral valve is normal in structure. No evidence of mitral valve stenosis. Mild mitral regurgitat ion. Tricuspid Valve The tricuspid valve is normal in structure. There is no tricuspid valve stenosis. Mild tricuspid regu rgitation. Pulmonic Valve The pulmonary valve is normal in structure. There is no pulmonic valvular stenosis. Trace pulmonic re gurgitation. Great Vessels The aortic root is normal in size. Ascending aorta is not well visualized. Aortic arch is normal in c aliber. IVC is normal in size and collapses >50% with inspiration. Pericardium Trivial anterior pericardial effusion 2D Dimensions IVSD d PLAX 0.67 cm F: 0.6-1.0 LV Vol A2C d MOD 86.2 mL LVPW d PLAX 0.68 cm F: 0.6 - 1.0 LV Vol A4C d MOD 85.0 mL LVID d PLAX 4.35 cm F: 3.8 - 5.2 LA vol/ BSA A2C s A-L 21.5 mL/m2 LVDs 3.00 cm F: 2.2 - 3.5 LA vol/ BSA A4C s A-L 42.4 mL/m2 Ao Root d 2.40 cm F: 2.7 - 3.3 LA Vol/ BSA Biplane s A-L 31.2 mL/m2 RA Area A4C 11.64 cm2 LA Area A4C s MOD 20.51 cm2 RA Vol/ BSA A4C s A-L 17.1 mL/m2 LA Area A2C s MOD 14.15 cm2 LV EF Teichholz 58.6 % LV EF A4C MOD 58.6 % LVEF (Hu's) 59.93 % F: 54 - 74 LV EF A2C MOD 59.9 % LV Volume 69.96 mL F: 46 - 106 LV EF Biplane MOD 59.9 % LV Volume Index 42.40 mL/m2 F: 29 - 61 SV 52.22 mL LV Vol Biplane MOD 87.1 mL SV Index 31.64 mL/m2 FS 30.70 % M-Mode TAPSE 3.08 cm (M/F) >1.7 LV Diastology MV E' medial 0.100 (>0.07 m/s) E/A Ratio 1.2 LV E/e MED 5.95 (<14) MV E Vmax 0.60 (0.4-1.3 m/s) MV E' lateral 0.122 (>0.1 m/s) MV A Vmax 0.50 (0.4-1.3 m/s) LV E/e LAT 4.85 (<14) MV E/A Ratio 1.15 MV E/E' medial 5.95 MV E/E' lateral 4.88 Aortic Valve LVOT Area 2.66 cm2 AoV Area Vmax 2.31 cm2 LVOT Vmax 1.01 m/s AoV Area/ BSA (Vmax) 1.40 cm2/m2 LVOT Mean Matt. 0.62 m/s DIONISIO Mean Matt. 2.12 cm2 LVOT Peak Grad 4.1 mmHg DIONISIO Mean Matt. Index 1.28 cm2/m2 LVOT Mean Grad 1.9 mmHg LVOT VTI 0.234 m LVOT Diam s 1.80 cm AoV Vmax 1.16 m/s Velocity Ratio 0.87 AoV Mean Matt. 0.77 m/s AoV Peak Grad 5.4 mmHg LVOT SV 62.28 mL AoV Mean Grad 2.7 mmHg AoV VTI 0.255 m AoV Area VTI 2.45 cm2 AoV Area/ BSA (VTI) 1.48 cm/m2 Mitral Valve MV DT 188 (160-240 msec) MV PHT 54 msec MV Area PHT 4.04 cm2 MV VTI 0.311 m MV Area VTI 2.00 (4.0-6.0 cm2) Pulmonary Valve PV Vmax 0.77 (0.5-1.5 m/s) RVOT Peak Gr. 2.00 mmHg PV Peak Grad 2.4 mmHg RVOT Mean Gr. 1.00 mmHg PV Mean Grad 1.2 mmHg RVOT VTI 0.186 m PV VTI 0.189 m RVOT Vmax 0.71 m/s Tricuspid Valve TR Peak Grad 15.9 mmHg TR Vmax 2.00 m/s RA Pressure 3.00 mmHg RVSP (TR) 19.0 mmHg
== END 2022-01-30 01:43 ==
LOC: DI 01:23
PROVIDERS: PCP Nurse Practitioner Family; Visit Provider Nurse Practitioner Family
DX: I31.39 Other pericardial effusion (noninflammatory) (principal)
CPT/HCPCS: 93306

== ENCOUNTER 2022-04-25 09:38 | Outpatient (REF) | payer MEDICAID, SELFPAY ==
[2022-04-25 15:45] LABS: HCT 39.3 % (36.0-46.0); HGB 13.3 g/dL (11.2-15.7); MCH 30.6 pg (27.0-33.0); MCHC 33.8 % (32.0-36.0); MCV 90 fL (80-95); MPV 10.7 fL (8.0-11.0); Platelet Count 196 10^3/uL (130-400); RBC 4.35 10^6/uL (3.93-5.22); RDW 12.6 % (11.7-14.6); RDW-SD 41.6 fL; WBC 3.11 10^3/uL (4.4-10.8)
[2022-04-25 16:42] LABS: ALT 31 U/L (14-59); AST 29 U/L (15-37); Alkaline Phosphatase 58 U/L (46-116); Anion Gap 8.6 mmol/L (3-11); BUN 16 mg/dL (7-18); Bilirubin, Total 1.6 mg/dL (0.2-1.0); CO2 29.4 mmol/L (21.0-32.0); CREATININE 0.8 mg/dL (0.55-1.02); Calcium 9.5 mg/dL (8.5-10.1); Calculated LDL 102 mg/dL (<100); Chloride 102 mmol/L (98-107); Cholesterol 230 mg/dL (<200); Glucose 94 mg/dL (74-106); HDL Cholesterol 118 mg/dL (40-60); Potassium 4.1 mmol/L (3.5-5.1); Sodium 140 mmol/L (136-145); TSH (W/Ref FT4) 1.77 uIU/mL (0.36-3.74); Total Protein 7.4 g/dL (6.4-8.2); Triglyceride 52 mg/dL (<150)
== END 2022-04-25 09:39 | disposition home or self-care (01) ==
LOC: NCHCN 09:38
PROVIDERS: PCP Nurse Practitioner Family; Visit Provider Nurse Practitioner Family
DX: E03.9 Hypothyroidism, unspecified (principal); D72.819 Decreased white blood cell count, unspecified; R79.89 Other specified abnormal findings of blood chemistry; Z00.00 Encounter for general adult medical examination without abnormal findings
CPT/HCPCS: 80053; 80061; 85027; 84443

== ENCOUNTER 2022-05-02 09:51 | Emergency (ER) | payer MEDICAID, SELFPAY ==
--- NOTE | 2022-05-02 09:45 | DI.RAD_ITS ---
Exam(s) XR HUMERUS RT EXAM: XR HUMERUS RT CLINICAL HISTORY: fall mid shaft pain. TECHNIQUE: 2D digital imaging was performed of the right humerus. Two images were obtained. AP and lateral views were obtained. COMPARISON: No exams were available for comparison FINDINGS: BONES: There is an acute fracture involving the proximal right humerus. The fracture involves the huynh rgical neck medially. It extends superior laterally to involve the greater tuberosity. 1-2 mm of di splacement is seen of the distal shaft laterally. The glenohumeral joint is well maintained. No bon y destructive lesion is seen. Visualized portion of elbow and shoulder joints are unremarkable. SOFT TISSUE: Normal. IMPRESSION: Acute proximal right humeral fracture as described above. DATA REPOSITORY: RADIATION DOSE DELIVERED:
[2022-05-02 09:52] VITALS: BP 128/75; PULSE 58; RESP 16; TEMP 36.7; O2SAT 100
--- NOTE | 2022-05-02 09:58 | W.ED.GENAD ---
Discharge Plan Disposition Patient Disposition: Home Discharge Details Clinical Impression: Fracture of proximal humerus Primary Care Provider: Claudia Ritter ED Provider: Noe Robin Home Meds and New Rx's Prescriptions: Continued cholecalciferol (vitamin D3) 25 mcg (1,000 unit) tablet 25 mcg PO DAILY levothyroxine 50 mcg tablet 50 mcg PO .QOD Patient Comments: Patient reports 50mcg QOD, 75mcg QOD on opposite days. Discharge Instructions Instructions: Proximal Humerus Fracture (ED) Additional Instructions: You may apply ice to help with swelling and continue to take [id number] acetaminophen or ibuprofen as directed on packaging. For severe pain you have been given a limited supply of narcotics and please use only as directed. If you develop any new or significant worsening of symptoms feel free to return to the emergency department otherwise call orthopedic office tomorrow for arrangement of follow-up appointment. Referrals: [facility] [Provider Group] (Please call the office tomorrow afternoon for arrangement of your follow-up appointment for reassessment of your arm/shoulder fracture.) Medical Decision Making Patient presenting to the emergency department via EMS for chief complaint of mechanical fall with right arm injury. Patient states she was walking on some pack snow and slipped falling with most of her body weight on her right upper arm. Patient denies any other injury or trauma, loss of consciousness, chest pain shortness of breath or difficulty breathing. Patient with inability to move right upper extremity due to significant and severe pain. Patient has midshaft humerus tenderness that is point tenderness, no obvious deformity, elbow forearm and hand are unremarkable as far as examination. Patient states subjective tingling to hand but sensation is full intact. We will plan on performing plain film imaging of right upper extremity. We will give p.o. ibuprofen pending results. Reviewed radiological imaging and her humeral head fracture is noted. We will review radiologist interpretation for any other findings. Did order patient sling. Review of radiological imaging confirms a proximal humerus fracture through the surgical neck. Patient placed upon follow-up list to follow-up with orthopedics and placed in sling. We will give patient limited supply of narcotics to use for severe pain otherwise encourage ice and continued use of [id number]-[id number] pain medication as needed. Did discussed with patient risk versus benefit of narcotic use and find no concern for opiate abuse. After discussion of diagnosis and plan of care patient has no further needs, questions, or concerns and states clear understanding to return to the emergency department for any worsening symptoms. This documentation was generated using [employer] dictation system, please disregard any oddities of phrase or misspellings. Imaging Data Radiologic Study: Attestation: I personally reviewed and interpreted this imaging study as follows: Imaging: X-Ray Radiologist's impression: Exam(s) XR HUMERUS RT EXAM: XR HUMERUS RT CLINICAL HISTORY: fall mid shaft pain. TECHNIQUE: 2D digital imaging was performed of the right humerus. Two images were obtained. AP and lateral views were obtained. COMPARISON: No exams were available for comparison FINDINGS: BONES: There is an acute fracture involving the proximal right humerus. The fracture involves the surgical neck medially. It extends superior laterally to involve the greater tuberosity. 1-2 mm of displacement is seen of the distal shaft laterally. The glenohumeral joint is well maintained. No bony destructive lesion is seen. Visualized portion of elbow and shoulder joints are unremarkable. SOFT TISSUE: Normal. IMPRESSION: Acute proximal right humeral fracture as described above. HPI General Mode of arrival: EMS. Date/Time Provider Initiated Documentation: 05/02/22 09:56. Limitations to Documentation: no limitations. Information obtained by: patient, EMS and RN notes reviewed. History of Present Illness 61 year old F presents to the emergency department with the chief complaint of Mechanical fall with right upper arm injury, described as moderate, with intensity rated at 6. Quality is described as aching and sharp, and is localized to the right and upper extremity. Patient distal. Patient started experiencing this hour(s) (1) and it has been constant. Immobilization improves symptom(s), Movement worsens symptoms . Patient notes no other symptoms.. Patient did receive the following treatments prior to arrival, none Related Data Home Medications Medication Instructions Recorded Confirmed cholecalciferol (vitamin D3) 25 25 mcg PO DAILY 05/15/21 05/02/22 mcg (1,000 unit) tablet levothyroxine 50 mcg tablet 50 mcg PO .QOD 05/15/21 05/02/22 Allergies Allergy/AdvReac Type Severity Reaction Status Date / Time Penicillins Allergy Severe Skin Verified 05/02/22 10:01 Rash, inside & out sulfamethoxazole Allergy Intermediate facial rash Verified 05/02/22 10:01 [From Bactrim] tetracycline Allergy Intermediate facial rash Verified 05/02/22 10:01 trimethoprim [From Bactrim] Allergy Intermediate facial rash Verified 05/02/22 10:01 General Stated Complaint: Fall/Non TraumaCriteria GAEL: 3 Review of Systems Constitutional Constitutional: Denies frequent falls and Denies headache(s) Eyes Eyes: Denies change in vision ENT Ears, Nose, Mouth, and Throat: Denies headache(s) Cardiovascular Cardiovascular: Denies chest pain and Denies dyspnea Respiratory Respiratory: Denies dyspnea Musculoskeletal Musculoskeletal: Reports as per HPI, Denies deformity, Reports arthralgias, Reports limited range of motion and Reports tingling Integumentary/Breasts Skin/Breast: Denies wounds Neurologic Neurologic: Denies frequent falls, Denies headache(s) and Reports tingling PFSH All Active Problems (Updated 05/02/22 @ 10:45 by Noe Robin NP) Fracture of proximal humerus (Acute) Unspecified urethral stricture, female (Acute) Sees urology in [facility] Urinary incontinence (Acute) Hypothyroidism (Chronic) Cough productive of clear sputum (Acute) Colon cancer screening (Acute) Medical History Anxiety De Quervain's tenosynovitis Dysphagia Dysphasia Elevated antinuclear antibody (JUWAN) level GERD (gastroesophageal reflux disease) [place] syndrome Leukopenia Lichen planus Nausea Neck pain Pain in right hip Pericardial effusion Skin lesion Sore throat Vaginal dryness Surgical History Appendectomy History of colonoscopy History of surgery Endometrial polypectomy Tonsillectomy Family History Mother Stomach cancer Grandfather Stomach cancer Grandfather Esophageal cancer Father Heart attack Prostate cancer Paternal Grandmother Heart attack Other Alcohol abuse Social History Smoking/Tobacco Use Status: Never Smoking risk assessment performed?: Yes Alcohol Intake: never Drug use: Never Substance use type: does not use Do you feel safe at home: Yes Do you feel safe in your relationship?: Yes Female Reproductive History Menstrual Menopause type: natural (Jan 2014) History History 0 Para Hx # Term Pregnancies Multiple births Hx # Pregnancies Ectopic pregnancies AB induced Hx Number of Living Children AB spontaneous Exam Const General: cooperative, no acute distress and not ill appearing Orientation: alert, awake and oriented x3 Resp Effort & Inspection: normal respiratory effort, able to speak in complete sentences and no respiratory distress Auscultation: clear to auscultation bilaterally Cardio Rate: regular rate Rhythm: regular rhythm Heart Sounds: S1 normal and S2 normal Pulses: normal peripheral pulses Back/Spine/Pelvis Cervical Spine: normal cervical lordosis, cervical ROM normal, No cervical spinal tenderness and No step off deformity Skin General skin exam: no rashes or lesions noted Neuro General: patient alert, patient awake and patient oriented x3 Sensory Exam: no sensory deficits noted Extrem General: normal exam except as noted Right upper extremity: shoulder/upper arm Details: normal to inspection, tenderness Location: of the mid-shaft humerus, axillary nerve sensory function normal and abnormal ROM Details: held in an abnormal fashion Details: in ADduction and in internal rotation, pain with active ROM and pain with passive ROM and hand Details: normal to inspection, normal capillary refill, neuromotor exam normal, neurosensory exam normal, tendon exam normal, vascular exam Details: radial pulse present and normal capillary refill and normal ROM of fingers
[2022-05-02] MEDS: Ibuprofen 600 MG TAB PO (10:06)
--- NOTE | 2022-05-02 17:30 | NUR.NOTE ---
Nursing Note: Accessed patient chart to print provider note to be faxed to [facility] for billing purposes.
== END 2022-05-02 11:10 | disposition home or self-care (01) ==
LOC: ER 10:59
PROVIDERS: Emergency Provider Nurse Practitioner Family; PCP Nurse Practitioner Family
DX: S42.201A Unspecified fracture of upper end of right humerus, initial encounter for closed fracture (principal); W18.39XA Other fall on same level, initial encounter
CPT/HCPCS: 99283; 73060; 99284

== ENCOUNTER → 2022-12-03 01:46 | Outpatient (CLI) | payer MEDICAID, SELFPAY ==
--- NOTE | 2022-12-03 | DI.MAMMO_ITS ---
Exam(s) MAMMO SCREENING EXAM: MAMMO SCREENING CLINICAL HISTORY: SCREENING, Z12.39 TECHNIQUE: Bilateral full field digital CC and MLO mammographic images were obtained with 3D tomosyn thesis and utilizing computer aided detection (CAD). COMPARISON: Available for comparison. FINDINGS: Masses/Architectural Distortion: None seen. Microcalcifications: No suspicious pleomorphic-type are seen. Skin Thickening/Nipple Retraction: None. IMPRESSION: 1. No significant interval change with no specific features of malignancy noted. 2. Unless there is more urgent need, screening mammography is recommended, as per [employer] guidelines. BI-RADS Category 1 - Negative Breast Density - Category C - Heterogeneously dense Breast density category C or D implies that the patient has dense breast tissue. Dense breast tissue is very common and is not abnormal but dense breast tissue can make it harder to find cancer on a ma mmogram. Also, dense breast tissue may increase their breast cancer risk. This information about the result of the mammogram report was provided to the patient to raise their awareness. Use this report when you speak with the patient about their risks for breast cancer, which includes their family hist ory. At that time, you may recommend for more screening tests (Ultrasound or MRI) as they might be us eful based on their risk. A negative radiographic report should not delay biopsy if a dominant or clinically suspicious mass is present. Up to ten percent of cancers are not identified on mammography. A negative report may reinforce clinical impression. Adenosis and dense breasts may obscure an underlying neoplasm. False positive reports average 6 to 10%. Patient will receive a letter notifying them of these results.
== END ==
PROVIDERS: PCP Nurse Practitioner Family; Visit Provider Nurse Practitioner Family
DX: Z12.31 Encounter for screening mammogram for malignant neoplasm of breast (principal)
CPT/HCPCS: 77063; 77067

== ENCOUNTER 2023-05-29 19:03 | Outpatient (REF) | payer SELFPAY ==
[2023-05-29 21:15] LABS: HCT 41.1 % (36.0-46.0); HGB 13.6 g/dL (11.2-15.7); MCH 30.6 pg (27.0-33.0); MCHC 33.1 % (32.0-36.0); MCV 93 fL (80-95); MPV 10.6 fL (8.0-11.0); Platelet Count 204 10^3/uL (130-400); RBC 4.44 10^6/uL (3.93-5.22); RDW 12.5 % (11.7-14.6); WBC 4.26 10^3/uL (4.4-10.8)
[2023-05-29 21:31] LABS: ALT 32 U/L (14-59); AST 31 U/L (15-37); Albumin 3.9 g/dL (3.4-5.0); Alkaline Phosphatase 69 U/L (46-116); Anion Gap 9.3 mmol/L (3-11); BUN 16 mg/dL (7-18); Bilirubin, Total 1.6 mg/dL (0.2-1.0); CO2 28.7 mmol/L (21.0-32.0); CREATININE 0.9 mg/dL (0.55-1.02); Calcium 8.9 mg/dL (8.5-10.1); Chloride 104 mmol/L (98-107); Estimated GFR 72.73 (mL/min/1.73m2); Glucose 101 mg/dL (74-106); Sodium 142 mmol/L (136-145); Total Protein 7.3 g/dL (6.4-8.2)
[2023-05-30 16:28] LABS: TSH (W/Ref FT4) 1.18 uIU/mL (0.36-3.74)
== END 2023-05-29 19:04 | disposition home or self-care (01) ==
LOC: NCHCN 19:03
PROVIDERS: PCP Nurse Practitioner Family; Visit Provider Nurse Practitioner Family
DX: E03.9 Hypothyroidism, unspecified (principal); Z00.00 Encounter for general adult medical examination without abnormal findings
CPT/HCPCS: 80053; 85027; 84443

== ENCOUNTER 2023-08-12 06:52 | Day surgery (SDC) | payer BC, SELFPAY ==
--- NOTE | 2023-08-11 19:43 | W.PM.DSUDISC ---
Date of service: 08/12/23 Time of Service: 08:45 Discharge Plan Disposition Patient Disposition: Home Condition: Good Discharge Details Reason For Visit: screening colonoscopy Attending Provider: Berto Hector Primary Care Provider: Claudia Ritter Home Meds and New Rx's Prescriptions: Continued levothyroxine 75 mcg capsule 75 mcg PO DAILY cholecalciferol (vitamin D3) 25 mcg (1,000 unit) tablet 25 mcg PO DAILY levothyroxine 50 mcg tablet 50 mcg PO .QOD Patient Comments: Patient reports 50mcg QOD, 75mcg QOD on opposite days. Saccharomyces boulardii [Daily Probiotic (S. boulardii)] 250 mg capsule 250 mg PO BID Discontinued bisacodyl [Dulcolax (bisacodyl)] 5 mg tablet,delayed release (DR/EC) 5 mg PO ONCE Qty: 4 0RF Rx Instructions: Take per colonoscopy instructions provided by ordering providers office polyethylene glycol 3350 17 gram/dose powder 17 g PO ONCE Qty: 238 0RF Rx Instructions: Take per colonoscopy instructions provided by ordering providers office Discharge Instructions Additional Instructions: Radha, we were able to complete your colonoscopy today without any issues. Your prep was outstanding and I could see everything just fine. Your colonoscopy was normal. You should consider another screening colonoscopy in 10 years. If you have any questions at all, please do not hesitate to ask. 1. If tolerated, consume a soft, low fiber diet for 1-2 days. 2[address] Do not drive, drink alcohol, operate machinery, make critical decisions, or do activities that require coordination or balance for 24 hours. 3. Because air was put into your colon during the procedure, expelling air from your rectum (passing gas or farting) is normal. 4. You may not have a bowel movement for 1-3 days because of the colonoscopy prep. This is normal. 5. Go directly to the emergency room if you notice any of the following: Develop chills (warm to touch), or if you have a thermometer and your temperature is above 101 Difficulty breathing or difficultly swallowing Persistent vomiting Severe abdominal pain, other than gas cramps Severe chest pain Black, tarry stools Any bleeding ? exceeding one tablespoon 6. Call your physician if the site where your intravenous was started becomes red, swollen, painful, and warm to touch. 7. Your physician has reviewed your pre-procedure medications. Please continue to take those medications as previously ordered. You will be given specific information/education regarding any changes to your medications before leaving. Activity:: Activity as Tolerated Diet:: As Tolerated Discharge Orders Discharge Orders: Discharge Order (Routine); Ordered 08/11/23 Ordered By: Berto Hector DS: Diagnosis Discharge Diagnosis (1) Encounter for screening colonoscopy: Status: Acute Asessment and Plan: Negative for screening colonoscopy
--- NOTE | 2023-08-11 19:44 | W.COLOREPORT ---
Date of service: 08/12/23 Time of Service: 08:47 Colonoscopy Report Date of procedure: 08/12/23 Pre-op diagnosis general: screening colonoscopy Post-op diagnosis procedure note: other (Negative screening colonoscopy) Procedure: colonoscopy Surgeon: Berto Hector Anesthesia Type: General:No Airway Estimated blood loss (mL): 0 Pathology: none sent Complications: None Disposition: same day Indications: Radha is a 62 year old woman who needs her next screening colonoscopy Prep: Miralax/Dulcolax Procedure Start Time: 08:25 Procedure End Time: 08:42 Retraction Time: 6 Findings: Negative screening colonoscopy Procedure Description: After the induction of anesthesia, and with the patient in left lateral decubitus position, I began by performing an external anorectal exam.? Perineum and skin were normal, as was the anal verge.? There was no evidence of external hemorrhoids.? Next, I performed a digital rectal exam.? I did not appreciate any abnormal findings.? Next, I advanced a colonoscope into the rectal vault.? I performed retroflexion.? This was normal.? Using insufflation, I then advanced the colonoscope beyond the rectal folds and into the sigmoid colon before advancing towards the cecum.? The scope was noted to be in the cecum by identification of the ileocecal valve and appendiceal orifice.? I then began withdrawing the colonoscope using repeated irrigation as necessary for full evaluation of the colonic mucosa. ?Once the scope was withdrawn to the level of the rectum, great care was taken to examine portions of the rectal folds. I did not see any signs of tumors, polyps, or any other worrisome pathology.? Finally, the scope was withdrawn and the patient was brought to the same-day surgery recovery unit as the anesthetic wore off. ?The findings and instructions were shared with the patient prior to discharge. [place] Bowel Prep [place] Bowel Prep Right Colon: 3 Left Colon: 3 Transverse Colon: 3 Total Score: 9
[2023-08-12 07:02] VITALS: BP 99/85; PULSE 74; RESP 16; TEMP 36.4; O2SAT 99
[2023-08-12] MEDS: Lactated Ringers 1,000 ML 80 ML IV (07:45)
[2023-08-12 07:52] VITALS: BMI 17.2
--- NOTE | 2023-08-12 07:52 | W.ANESPRE ---
General Info Date of Service Date Performed: 08/12/23 Height: 5 ft 9 in Weight: 53 kg Body Mass Index (BMI): 17.2 Surgical Procedure: Operation Date: 08/12/23 09:05 Proposed Procedure Side Surgeon aleksandra Hector MD Meds Allergies and Home Medications Allergies Allergy/AdvReac Type Severity Reaction Status Date / Time Penicillins Allergy Severe Anaphylaxis Verified 08/12/23 07:25 sulfamethoxazole Allergy Intermediate facial rash Verified 08/12/23 07:25 [From Bactrim] tetracycline Allergy Intermediate facial rash Verified 08/12/23 07:25 trimethoprim [From Bactrim] Allergy Intermediate facial rash Verified 08/12/23 07:25 Home Medication Medication Instructions Recorded cholecalciferol (vitamin D3) 25 25 mcg PO DAILY 05/15/21 mcg (1,000 unit) tablet levothyroxine 50 mcg tablet 50 mcg PO .QOD 05/15/21 Saccharomyces boulardii 250 mg 250 mg PO BID 04/30/23 capsule (Daily Probiotic (S. boulardii)) levothyroxine 75 mcg capsule 75 mcg PO DAILY 07/30/23 Current Visit Medications: Current Medications Generic Name Dose Route Start Last Admin Trade Name Freq PRN Reason Stop Dose Admin Hyoscyamine Sulfate 0.125 mg 08/11/23 19:45 Hyoscyamine 0.125 Mg Sl/Oral/Chew SL 09/10/23 19:44 DIRECTED PRN Ringer's Solution 1,000 mls @ 80 mls/hr 08/12/23 06:00 IV 09/08/23 23:59 INFUSION REPLACED BY [facility] IV Miscellaneous Supplies 1 each 08/12/23 06:00 Iv Access IV 09/08/23 23:59 DIRECTED REPLACED BY [facility] Ondansetron HCl 4 mg 08/11/23 19:45 Ondansetron 4 Mg/2 Ml Vial IVP 09/10/23 19:44 Q4H PRN PRN Nausea / Vomiting Sodium Chloride 0 ml 08/12/23 06:00 Normal Saline Flush 10 Ml Syr IV 09/08/23 23:59 PRN PRN Sodium Chloride 0 ml 08/12/23 06:00 Normal Saline 10 Ml Vial IJ 09/08/23 23:59 DIRECTED PRN Sterile Water 0 ml 08/12/23 06:00 Water,Injection,Sterile 10 Ml Vial IJ 09/08/23 23:59 DIRECTED PRN PFSH Active Problems Active Problems: Problem Status Onset Code Encounter for screening colonoscopy Z12.11 Unspecified urethral stricture, female N35.92 Urinary incontinence R32 Cough productive of clear sputum R05.8 Hypothyroidism E03.9 Colon cancer screening Z12.11 Medical History Medical History [place] syndrome Pericardial effusion Per pt. states it is still there and has had full work up but that it is so minimal for her not to worry Leukopenia Lichen planus Pain in right hip Skin lesion Vaginal dryness Nausea Elevated antinuclear antibody (JUWAN) level Dysphasia GERD (gastroesophageal reflux disease) De Quervain's tenosynovitis Neck pain Dysphagia Sore throat Anxiety Surgical History Surgical History History of surgery Endometrial polypectomy History of colonoscopy Tonsillectomy Appendectomy Tobacco Smoking/Tobacco Use Status: Former Tobacco Use Passive smoking exposure: No Second hand exposure: No Alcohol Alcohol Intake: current Alcohol intake frequency: holidays/special occasions only Substance Use Substance use: Never Substance use type: does not use Prental History History 0 Para Hx # Term Pregnancies Multiple births Hx # Pregnancies Ectopic pregnancies AB induced Hx Number of Living Children AB spontaneous Vital Signs and Lab Results Vital Signs Most Recent Vital Signs in EMR: Most Recent Vital Signs Temp Pulse Resp BP Pulse Ox 36.4 C L 74 16 99/85 L 99 08/12/23 07:02 08/12/23 07:02 08/12/23 07:02 08/12/23 07:02 08/12/23 07:02 Lab Results Blood Type / Crossmatch: No Data to Display Complete Blood Count: No Data to Display Complete Metabolic Panel: No Data to Display Liver Function Panel: No Data to Display Coagulation Panel: No Data to Display Cardiac Panel: No Data to Display Arterial Blood Gas: No Data to Display Venous Blood Gas: No Data to Display Pancreas Panel: No Data to Display Thyroid Panel: No Data to Display Infectious Disease: No Data to Display Blood Cultures: No Data to Display Toxicology Panel: No Data to Display Imaging and Studies Imaging and Studies Study information below may be from another EMR and interpreted by another provider. Please see original notes in EMR for more complete details. Echocardiogram Summary: Patient Name: Radha Swan Unit #: [id number] Loc: DI Ordering Provider: Claudia Ritter Status: REG CLI Primary Care Provider: Claudia Ritter Date of Exam: 01/30/22 Sex: F Admission Date: 01/30/22 : 1960 Age: 61 APPROVED REPORT EXAM: Comprehensive 2D, Doppler, and color-flow Echocardiogram Patient Location: Out-Patient District [facility] District Office Director: Elvira Mendiola RDCS (AE) Indications: Pericardial effusion Other Information Study Quality: Adequate Conclusion Normal left ventricular wall thickness and chamber size. Estimated ejection fraction is 60%. Wall motion is normal Normal right ventricular size and systolic function Both atria are normal in size Aortic valve is trileaflet and mildly sclerotic without stenosis or regurgitation Trivial anterior pericardial effusion Normal estimated right ventricular systolic pressure 19 mmHg Wall motion Left Ventricle The left ventricle is normal size. The left ventricular systolic function is normal. The left ventricular ejection fraction is within the normal range. There is normal left ventricular wall thickness. There is normal LV segmental wall motion. There is no ventricular septal defect visualized. LVEF is 60%. Right Ventricle The right ventricle is normal size. The right ventricular systolic function is normal. The RVSP is 19.0 mmHg. Atria The left atrium size is normal. The right atrium size is normal. There is no Doppler evidence for an atrial septal defect. Aortic Valve The Aortic valve is mildly sclerotic. Aortic valve is trileaflet. There is no aortic valvular stenosis. No aortic regurgitation is present. Mitral Valve The mitral valve is normal in structure. No evidence of mitral valve stenosis. Mild mitral regurgitation. Tricuspid Valve The tricuspid valve is normal in structure. There is no tricuspid valve stenosis. Mild tricuspid regurgitation. Pulmonic Valve The pulmonary valve is normal in structure. There is no pulmonic valvular stenosis. Trace pulmonic regurgitation. Great Vessels The aortic root is normal in size. Ascending aorta is not well visualized. Aortic arch is normal in caliber. IVC is normal in size and collapses >50% with inspiration. Pericardium Trivial anterior pericardial effusion 2D Dimensions IVSD d PLAX 0.67 cm F: 0.6-1.0LV Vol A2C d MOD 86.2 mL LVPW d PLAX 0.68 cm F: 0.6 - 1.0LV Vol A4C d MOD 85.0 mL LVID d PLAX 4.35 cm F: 3.8 - 5.2LA vol/ BSA A2C s A-L21.5 mL/m2 LVDs 3.00 cm F: 2.2 - 3.5LA vol/ BSA A4C s A-L42.4 mL/m2 Ao Root d 2.40 cm F: 2.7 - 3.3LA Vol/ BSA Biplane s A-L 31.2 mL/m2 RA Area A4C11.64 cm2LA Area A4C s MOD 20.51 cm2 RA Vol/ BSA A4C s A-L 17.1 mL/m2LA Area A2C s MOD 14.15 cm2 LV EF Teichholz 58.6 %LV EF A4C MOD 58.6 % LVEF (Hu's)59.93 % F: 54 - 74LV EF A2C MOD 59.9 % LV Qobtgi35.96 mL F: 46 - 106LV EF Biplane MOD 59.9 % LV Volume Index42.40 mL/m2 F: 29 - 61SV52.22 mL LV Vol Biplane MOD 87.1 mLSV Index31.64 mL/m2 FS30.70 % M-Mode TAPSE 3.08 cm (M/F) >1.7 LV Diastology MV E' medial0.100 (>0.07 m/s)E/A Ratio 1.2 LV E/e MED5.95 (<14)MV E Vmax 0.60 (0.4-1.3 m/s) MV E' lateral0.122 (>0.1 m/s)MV A Vmax 0.50 (0.4-1.3 m/s) LV E/e LAT4.85 (<14)MV E/A Ratio 1.15 MV E/E' medial 5.95 MV E/E' lateral4.88 Aortic Valve LVOT Area2.66 cm2AoV Area Vmax2.31 cm2 LVOT Vmax 1.01 m/sAoV Area/ BSA (Vmax)1.40 cm2/m2 LVOT Mean Matt.0.62 m/sAVA Mean Matt.2.12 cm2 LVOT Peak Grad 4.1 mmHgAVA Mean Matt. Index1.28 cm2/m2 LVOT Mean Grad 1.9 mmHg LVOT VTI0.234 m LVOT Diam s 1.80 cm AoV Vmax1.16 m/s Velocity Ratio 0.87 AoV Mean Matt.0.77 m/s AoV Peak Grad5.4 mmHg LVOT SV 62.28 mL AoV Mean Grad2.7 mmHg AoV VTI0.255 m AoV Area VTI2.45 cm2 AoV Area/ BSA (VTI)1.48 cm/m2 Mitral Valve MV DT 188 (160-240 msec) MV PHT54 msec MV Area PHT 4.04 cm2 MV VTI 0.311 m MV Area VTI 2.00 (4.0-6.0 cm2) Pulmonary Valve PV Vmax 0.77 (0.5-1.5 m/s)RVOT Peak Gr.2.00 mmHg PV Peak Grad 2.4 mmHgRVOT Mean Gr.1.00 mmHg PV Mean Grad 1.2 mmHgRVOT VTI0.186 m PV VTI 0.189 mRVOT Vmax 0.71 m/s Tricuspid Valve TR Peak Grad 15.9 mmHgTR Vmax 2.00 m/s RA Pressure 3.00 mmHg RVSP (TR) 19.0 mmHg Ordered By: Claudia Ritter CC: Dictated By: Tri Cid M.D. 01/30/22 1519 <Electronically signed by Tri Cid M.D. in OV> 02/01/22 0821 Transcribed By: Tri Cid MD This is privileged, confidential information intended only for the provider named. Any use or distribution by any person other than this provider is strictly prohibited. If you receive this report in error, please notify us immediately at [phone] and return the original report to us at the address above. Thank-you. Anesthesia Assessment and Plan Anesthesia History Personal History: No History of Anesthesia Complications Family History: No Family History of Anesthesia Complications Exercise Tolerance Exercise Tolerance: Metabolic Equivalents>4 Pertinent Negatives Pertinent Negatives: No Symptoms of GERD, No Major Pulmonary Symptoms or Complaints and No History of CVA/TIA Cardiac & Pulmonary Exam Cardiac Exam: Normal S1/S2 Heart Sounds Pulmonary Exam: Clear Bilateral Breath Sounds Cardiac and Pulmonary Comment:: persistent small pericardial effusion, no symptoms Implantable Cardiac Device Does patient have a Pacemaker or an ICD?: No Airway Exam Known Difficult Airway: No Mallampati Class: 2 Mouth Opening: Normal (> 3cm) Thyromental Distance: Greater than 3 cm Neck Range of Motion: Full ROM Neck Circumference: Normal Teeth Condition: Normal Dentition ASA Classification ASA Score: ASA 2 Emergency Case?: No NPO Status NPO Status: NPO Clears >2 hours, Solids >8 hours Anesthesia Plan Resuscitation Status: Full Code Anesthesia Technique: General Anesthesia Airway Planned: Natural Airway Monitors Used: Standard Monitors
[2023-08-12 08:50] VITALS: BP 93/60; PULSE 61; RESP 16; TEMP 36.6; O2SAT 98
--- NOTE | 2023-08-12 08:58 | W.ANESPOSTOP ---
Postoperative Evaluation Date, Time and Location Date Performed: 08/12/23 Time Performed: 08:58 Patient Location: Day Surgery Unit Vital Signs Most Recent Imported Vital Signs: Most Recent Vital Signs Temp Pulse Resp BP Pulse Ox 36.6 C 61 16 93/60 L 98 08/12/23 08:50 08/12/23 08:50 08/12/23 08:50 08/12/23 08:50 08/12/23 08:50 Pain Score Most Recent Pain Score: Most Recent Pain Score Pain Level 0 08/12/23 08:50 Assessment Mental Status: Awake (Alert & Oriented to Patient Baseline) Airway and Respiratory Function: Patent airway with normal (patient baseline) respiratory exam Cardiovascular Function: Hemodynamically Stable Hydration Status: Adequately Hydrated Nausea & Vomiting: No Nausea or Vomiting Pain: Pt. Denies Any Pain Peripheral Nerve Block: Patient did not receive a nerve block
[2023-08-12 09:09] VITALS: BP 106/73; PULSE 60; RESP 16; TEMP 36.6; O2SAT 98
[2023-08-12 09:22] VITALS: BP 104/79; PULSE 61; RESP 18; O2SAT 98
== END 2023-08-12 09:25 | disposition home or self-care (01) ==
LOC: SUR 06:53
PROVIDERS: PCP Nurse Practitioner Family; Visit Provider Surgery
PROC: 0DJD8ZZ Inspection of Lower Intestinal Tract, Via Natural or Artificial Opening Endoscopic (ICD-10-PCS; CPT 45378; principal; 2023-08-12 09:00)
DX: Z12.11 Encounter for screening for malignant neoplasm of colon (principal)
CPT/HCPCS: 45378; J2704

== ENCOUNTER 2023-12-25 01:55 | Outpatient (CLI) | payer BC, SELFPAY ==
--- NOTE | 2023-12-25 12:45 | DI.MAMMO_ITS ---
Exam(s) MAMMO SCREENING EXAM: MAMMO SCREENING CLINICAL HISTORY: screening TECHNIQUE: Bilateral full field digital CC and MLO mammographic images were obtained with 3D tomosyn thesis and utilizing computer aided detection (CAD). COMPARISON: Available for comparison. FINDINGS: Masses/Architectural Distortion: None seen. Microcalcifications: No suspicious pleomorphic-type are seen. Skin Thickening/Nipple Retraction: None. IMPRESSION: 1. No significant interval change with no specific features of malignancy noted. 2. Unless there is more urgent need, screening mammography is recommended, as per [place] [employer] guidelines. BI-RADS Category 1 - Negative Breast Density - Category C - Heterogeneously dense Breast density category C or D implies that the patient has dense breast tissue. Dense breast tissue is very common and is not abnormal but dense breast tissue can make it harder to find cancer on a ma mmogram. Also, dense breast tissue may increase their breast cancer risk. This information about the result of the mammogram report was provided to the patient to raise their awareness. Use this report when you speak with the patient about their risks for breast cancer, which includes their family hist ory. At that time, you may recommend for more screening tests (Ultrasound or MRI) as they might be us eful based on their risk. A negative radiographic report should not delay biopsy if a dominant or clinically suspicious mass is present. Up to ten percent of cancers are not identified on mammography. A negative report may reinforce clinical impression. Adenosis and dense breasts may obscure an underlying neoplasm. False positive reports average 6 to 10%. Patient will receive a letter notifying them of these results.
== END 2023-12-25 02:15 ==
PROVIDERS: PCP Nurse Practitioner Family; Visit Provider Nurse Practitioner Women's Health
DX: Z12.31 Encounter for screening mammogram for malignant neoplasm of breast (principal); R92.333 Mammographic heterogeneous density, bilateral breasts
CPT/HCPCS: 77063; 77067

== ENCOUNTER 2024-06-03 13:57 | Outpatient (REF) | payer BC, SELFPAY ==
--- NOTE | 2024-06-03 12:30 | PAPFT_PTH ---
PATIENT: Radha Swan LOC: [facility] U#:[id number] AGE/SX: 63/F ROOM: RE06/03/[address]: Claudia Ritter : 1960 BED: DIS: 06/03/2024 SPEC #: [id number] RECD: 06/04/24 13:03 STATUS: ROBSON TINEO #: [id number] JORGE: 06/03/24 12:[address]: Claudia Ritter DEPT: [facility] Cytology RECD BY: Cynthia Jean Baptiste Tissues: 1 - CX/ENDOCX FOR PAP SMEARS Procedures: PAP THIN PREP/UVM Screening Comments: [id number] (UNSATISFACTORY FOR EVALUATION)
[2024-06-03 21:22] LABS: HCT 40.7 % (36.0-46.0); HGB 13.6 g/dL (11.2-15.7); MCH 30.9 pg (27.0-33.0); MCHC 33.4 % (32.0-36.0); MCV 93 fL (80-95); MPV 11.6 fL (8.0-11.0); Platelet Count 181 10^3/uL (130-400); RDW 12.6 % (11.7-14.6); WBC 4.63 10^3/uL (4.4-10.8)
[2024-06-03 21:54] LABS: ALT 32 U/L (14-59); AST 27 U/L (15-37); Alkaline Phosphatase 77 U/L (46-116); Anion Gap 7.8 mmol/L (3-11); BUN 18 mg/dL (7-18); Bilirubin, Total 1.2 mg/dL (0.2-1.0); CO2 30.2 mmol/L (21.0-32.0); CREATININE 0.9 mg/dL (0.55-1.02); Calcium 9.4 mg/dL (8.5-10.1); Chloride 105 mmol/L (98-107); Estimated GFR 72.28 (mL/min/1.73m2); Glucose 105 mg/dL (74-106); Potassium 4.8 mmol/L (3.5-5.1); Sodium 143 mmol/L (136-145); TSH (W/Ref FT4) 1.14 uIU/mL (0.36-3.74); Total Protein 7.3 g/dL (6.4-8.2)
[2024-06-03 21:57] LABS: Hemoglobin A1C 5.5 % (<5.7)
[2024-06-03 22:12] LABS: Calculated LDL 84 mg/dL (<100); Cholesterol 213 mg/dL (<200); HDL Cholesterol 109 mg/dL (>or=50); Triglyceride 100 mg/dL (<150)
== END 2024-06-03 13:58 | disposition home or self-care (01) ==
LOC: NCHCN 13:57
PROVIDERS: PCP Nurse Practitioner Family; Visit Provider Nurse Practitioner Family
DX: K21.9 Gastro-esophageal reflux disease without esophagitis (principal); Z00.00 Encounter for general adult medical examination without abnormal findings; R42 Dizziness and giddiness; E03.9 Hypothyroidism, unspecified; Z12.4 Encounter for screening for malignant neoplasm of cervix
CPT/HCPCS: 80053; 80061; 85027; 88142; 83036; 84443

== ENCOUNTER → 2025-01-18 03:44 | Outpatient (CLI) | payer BC, SELFPAY ==
--- NOTE | 2025-01-18 15:36 | DI.MAMMO_ITS ---
Exam(s) MAMMO SCREENING EXAM: MAMMO SCREENING CLINICAL HISTORY: SCREENING, Z12.31. TECHNIQUE: Bilateral full field digital CC and MLO mammographic images were obtained with 3D tomosynthesis and utilizing computer aided detection (CAD). COMPARISON: Prior mammograms were reviewed. FINDINGS: There has been no significant change in the appearance and distribution of the fibroglandular tissue. There are no new spiculated masses nor malignant appearing microcalcification groups. There is no significant architectural distortion nor skin thickening-retraction. IMPRESSION: No radiographic evidence of malignancy. BI-RADS Category 1 - Negative Breast Density - Category C - The breast are heterogeneously dense, which may obscure small masses. Breast density Category C or D implies that the patient has dense breast tissue. Dense breast tissue can make it harder to find cancer on a mammogram. Dense breast tissue is also associated with an increased risk of breast cancer. This information about the result of the mammogram report was provided to the patient to raise their awareness. Use this report when you speak with the patient about their risks for breast cancer, which includes their family history. At that time, you may recommend additional screening tests (Ultrasound or MRI) as these tests may add significant information. A negative radiographic report should not delay biopsy if a dominant or clinically suspicious mass is present. Up to ten percent of cancers are not identified on mammography. A negative report may reinforce clinical impression. Adenosis and dense breasts may obscure an underlying neoplasm. False positive reports average 6 to 10%. Patient will receive a letter notifying them of these results.
== END ==
PROVIDERS: PCP Nurse Practitioner Family; Visit Provider Nurse Practitioner Family
DX: Z12.31 Encounter for screening mammogram for malignant neoplasm of breast (principal); R92.323 Mammographic fibroglandular density, bilateral breasts
CPT/HCPCS: 77063; 77067